=== PATIENT | female | born 2000 | race Caucasian/White ===

== ENCOUNTER → 2023-01-16 | Outpatient (CLI) | payer BC ==
--- NOTE | 2023-01-16 18:34 | Diagnostic Imaging Report ---
PROCEDURE: Pelvic comp/transvaginal sonogram. TECHNIQUE: Complete transabdominal and transvaginal pelvic ultrasound was performed. In addition, limited pelvic Doppler was performed. INDICATION: Pelvic pain, evaluate IUD. Uterus is anteverted measuring 6.1 x 2.4 x 4.57 cm. Endometrium is 4 mm in thickness. The IUD appears to be appropriately centered in the endometrial canal. No myometrial mass is detected. Right ovary measures 3.4 x 2.1 x 1.7 cm and the left ovary measures 3.2 x 2.1 x 2.9 cm. Left ovary contains a probable hemorrhagic cyst measuring approximately 2 cm in size. There is blood flow to the ovaries. No free fluid is detected. IMPRESSION: 1. The IUD is appropriately centered within the endometrial canal. 2. 2 cm hemorrhagic left ovarian cyst. Dictated by: Dictated on workstation # [id number]
== END ==
LOC: RAD 13:19
DX: Z30.431 Encounter for routine checking of intrauterine contraceptive device (principal); N83.202 Unspecified ovarian cyst, left side
CPT/HCPCS: 76830; 76856